=== PATIENT | male | born 1945 | race Caucasian/White ===

== ENCOUNTER 2018-09-18 14:09 | Emergency (ER) | payer BC ==
[~2018-09-18] VITALS: Ht 177.8 cm; Wt 83.9 kg
[2018-09-18] MEDS ORDERED: CHILDREN'S ASPI81 MG PO (15:18)
== END 2018-09-18 19:05 | disposition home or self-care (01) ==
LOC: ER 14:09
DX: J09.X2 Influenza due to identified novel influenza A virus with other respiratory manifestations (principal)

== ENCOUNTER → 2021-07-16 | Emergency (ER) | payer BC ==
[~2021-07-16] VITALS: Ht 177.8 cm; Wt 81.6 kg
[~2021-07-16] MED LIST: CHILDREN'S ASPI81 MG PO
== END | disposition home or self-care (01) ==
LOC: ER 11:26
DX: R13.19 Other dysphagia (principal); Z20.822 Contact with and (suspected) exposure to COVID-19